=== PATIENT | female | born 1960 | race Hispanic/Latino ===

== ENCOUNTER 2017-10-30 15:20 | Outpatient (CLI) | payer BC ==
--- NOTE | 2017-10-30 16:10 | XRay Report ---
XRAY BILATERAL KNEE 4 VIEWS EACH: 10/30/17 15:20:00 CLINICAL: Bilateral knee pain. FINDINGS: Right: Moderate osteopenia. Medial joint space narrowing with small osteophytes. Widening of the lateral joint space with osteophytes. Patellofemoral joint osteoarthritis with loss of the joint space and osteophytes. No fracture or dislocation. Normal soft tissues. Left: Moderate osteopenia. Medial joint space narrowing with small osteophytes. Slight widening of the lateral joint space with small osteophytes. Patellofemoral joint osteoarthritis with complete loss of the joint space and osteophytes. No joint effusion. No fracture or dislocation. Normal soft tissues. IMPRESSION: Moderately severe bilateral osteoarthritis with greater involvement of the medial joint spaces and the patellofemoral joints.
== END 2017-10-30 15:21 | disposition home or self-care (01) ==
LOC: SPVIMAG 15:20
PROVIDERS: ATTEND Orthopaedic Surgery Sports Medicine
DX: M17.0 Bilateral primary osteoarthritis of knee (principal); M85.861 Other specified disorders of bone density and structure, right lower leg; M85.862 Other specified disorders of bone density and structure, left lower leg